=== PATIENT | female | born 1980 | race African-American/Black ===

== ENCOUNTER 2016-08-30 05:36 | Inpatient (IN) | payer MEDICAID ==
[2016-08-30] MEDS ORDERED: LR 1,000 ML IV ONE (06:42)
[2016-08-30] MEDS ORDERED: LIDOCAINE 1% 5 ML SDV ID PRN (06:42)
[2016-08-30 06:47] LABS: % IMMATURE GRANULYOCYTES 0.4 % (0.0-1.1); ABSOLUTE IMMATURE GRANULOCYTES 0.02 10^3/uL (0.00-0.10); ADD DIFF? NO; ADD MORPH? NO; ADD SCAN? NO; ATYPICAL LYMPHOCYTE FLAG 60 (0-99); FRAGMENT RBC FLAG 20 (0-99); HEMATOCRIT 41.7 % (38.0-47.0); HEMOGLOBIN 14.1 g/dL (12.6-16.3); LEFT SHIFT FLG 0 (0-99); LIPEMIA HEMOLYSIS FLAG 90 (0-99); MEAN CELL HEMOGLOBIN 27.1 pg (27.9-34.1); MEAN CELL HEMOGLOBIN CONCENTR. 33.8 g/dL (32.4-36.7); MEAN CELL VOLUME 80.2 fL (81.5-99.8); MEAN PLATELET VOLUME 9.8 fL (8.7-11.7); PLATELET CLUMPS FLAG 0 (0-99); PLATELET COUNT 338 10^3/uL (150-400); RED CELL DISTRIBUTION WIDTH 19.8 % (11.5-15.2)
[2016-08-30] MEDS ORDERED: VASOPRESSIN 20 UNIT/ML VIAL ONE (07:08)
[2016-08-30] MEDS ORDERED: SURGIFLO MATRIX KIT WITH THROMBIN TP ONE (07:08)
[2016-08-30] MEDS ORDERED: BUPIVACAINE/EPI 0.5% 30 ML SDV ONE (07:08)
[2016-08-30] MEDS ORDERED: DEXAMETHASONE 4 MG/ML VIAL ONE (07:12)
[2016-08-30] MEDS ORDERED: HYDROmorphONE/DILAUDID 2 MG/ML SYR ONE (07:12)
[2016-08-30] MEDS ORDERED: SUGAMMADEX SODIUM 200 MG/2 ML VIAL IVP ONE (07:12)
[2016-08-30] MEDS ORDERED: fentaNYL 100 MCG/2 ML INJ ONE ×2 (07:12→09:16)
[2016-08-30] MEDS ORDERED: PROPOFOL 200 MG/20 ML VIAL ONE (07:12)
[2016-08-30] MEDS ORDERED: ONDANSETRON 4 MG/2 ML VIAL ONE (07:12)
[2016-08-30] MEDS ORDERED: ROCURONIUM 50 MG/5 ML VIAL ONE (07:12)
[2016-08-30] MEDS ORDERED: LIDOCAINE 2% 100 MG/5 ML SYR IVP ONE (07:12)
[2016-08-30] MEDS ORDERED: MIDAZOLAM 2 MG/2 ML VIAL ONE (07:16)
[2016-08-30] MEDS ORDERED: KETOROLAC 30 MG/1 ML SDV ONE (08:46)
[2016-08-30] MEDS ORDERED: ONDANSETRON 4 MG/2 ML VIAL IVP PRN (09:10)
[2016-08-30] MEDS ORDERED: ACETAMINOPHEN 325 MG TAB PO PRN (09:10)
[2016-08-30] MEDS ORDERED: PROMETHAZINE HCL 25 MG/ML VIAL IVP PRN (09:10)
--- NOTE | 2016-08-30 09:10 | POSTOPPROG ---
Post Op Note Date of Operation: 08/30/16 Surgeon: Estefani Giron Data Analysis Intern: Charity Tamayo MD Anesthesiologist: Jose Manuel Anesthesia: GET(General Endotracheal) Pre-op Diagnosis: Symptomatic fibroid uterus, desired future fertility Post-op Diagnosis: cliff Indication: Symptomatic large fibroid uterus, desired future fertility Procedure: Abdominal myomectomy Findings: Two large fibroids- one pedunculated off left fundus, one intramural. Inf/Abcess present in the surg proc area at time of surgery?: No Depth: Organ Space EBL: 50-100 Complications: none Drains: Other (christianson) Specimen(s): Fibroids x 3
[2016-08-30] MEDS ORDERED: morphINE PCA 30 MG/30 ML PCA IV PRN (09:14)
[2016-08-30] MEDS ORDERED: diphenhydrAMINE 25 MG CAP PO PRN (09:14)
[2016-08-30] MEDS ORDERED: NALOXONE HCL 0.4 MG/ML INJ IVP PRN (09:14)
[2016-08-30] MEDS ORDERED: IBUPROFEN 200 MG TAB PO PRN (09:14)
[2016-08-30] MEDS ORDERED: HYDROmorphONE/DILAUDID 1 MG/ML SYR ONE (09:16)
[2016-08-30] MEDS ORDERED: PROMETHAZINE HCL 25 MG/ML VIAL ONE (09:18)
--- NOTE | 2016-08-30 09:51 | GOP ---
[f rep st] OPERATIVE REPORT DATE OF OPERATION: 08/30/2016 SURGEON: Estefani Giron MD OUTBOARD [employer]ORS EXPERIMENTAL MECHANIC: Charity Tamayo MD ANESTHESIA: General. ANESTHESIOLOGIST: Yaw Richard MD PREOPERATIVE DIAGNOSIS: 1. Symptomatic fibroid uterus. 2. Desires future fertility. POSTOPERATIVE DIAGNOSIS: 1. Symptomatic fibroid uterus. 2. Desires future fertility. PROCEDURE PERFORMED: Abdominal myomectomy. FINDINGS: The uterus was found to have one 6-7 cm pedunculated fibroid off the left fundus of the ut erus, one very large approximately 10 cm fibroid that was intramural in location that did enter into the endometrial cavity, and one smaller anterior 2-3 cm fibroid. The area of dissection did enter th e endometrial cavity. It also came close to the entry point of the right fallopian tube. However, t he area of the left fallopian tube was clearly avoided. SPECIMENS: Fibroids. ESTIMATED BLOOD LOSS: 50 cc. INDICATIONS: Patient is a 36-year-old 0 female with a history of symptomatic fibroid uterus with menorrhagia and severe dysmenorrhea. She was noted to have at least 2 large fibroids up to 10 c m, and she desires future fertility. She strongly desires to proceed with abdominal myomectomy. She had tried multiple other medical treatments including hormonal therapy, which had not been successfu l in treating her pain. DESCRIPTION OF PROCEDURE: Patient was taken to the operating room, where general anesthesia was foun d to be adequate. Patient was prepared and draped in the normal sterile fashion in the dorsal supine position. A low transverse skin incision was made and carried down to the level of the fascia using the scalpel and Bovie for hemostasis. The fascia was incised in the midline, extended laterally rubia aterally with the Cobb scissors. Fascia was dissected off the rectus muscles superiorly and inferior ly using the Bovie. The peritoneal cavity was entered with Crissy clamps and extended superiorly and inferiorly in layers using the Bovie. The uterus was then elevated out of the patient's abdomen. Th ere was one 6-7 cm pedunculated fibroid which was removed easily by just clamping across its 2-3 cm b ase with a curved Andrey clamp. The fibroid was excised, and then the pedicle was tied off with 0 Vi cryl. The larger fibroid was clearly encompassing the majority of the uterus. The overlying uterine serosa was injected with a vasopressin mixture that was a concentration of 1 amp of vasopressin in 6 0 cc of normal saline. This injection was injected over the fibroid in an anterior-posterior directi on. An incision was made in the serosa overlying the fibroid in the midline in an anterior-posterior direction. The edges of the uterine serosa were grasped with Allis clamps, and the fibroid was diss ected out from all of its attachments using a fine Crissy clamp in addition to the Bovie and some blun t dissection. The fibroid was removed from the field. Upon evaluation, there had been entry clearly into the endometrial cavity. The closure of the space was initiated with a running, locked stitch o f 0 Vicryl incorporating the endometrium as well as the surrounding myometrium. After this layer, 2 additional [id number] stitches were placed, and hemostasis was assured. The excess uterine sero sa was excised with the Cobb scissors, and the remaining incision was closed using a baseball stitch and using 0 Vicryl. Hemostasis was assured. Attention was then turned to the smaller anterior fibro id, where vasopressin was injected overlying the fibroid along the serosal plane. An incision was ma de overlying the fibroid, and it was easily and quickly dissected out using Crissy clamps. This incis ion was closed with 2 kgflli-[id number]-bkxps stitches, and hemostasis was assured. The remaining larger inc ision was covered with a segment of Surgicel, and no bleeding was noted. It was placed back into the abdomen. The rectus muscle surfaces and fascial surfaces were examined closely, and hemostasis was obtained wi th use of the Bovie. The fascia was then closed with a running, nonlocked stitch of 0 Vicryl. The s ubcutaneous tissue was irrigated with copious amounts of normal saline, and hemostasis was obtained w ith the use of the Bovie. The skin incision was then closed with a subcuticular stitch of 4-0 Monocr yl. Steri-Strips and a bandage dressing were placed. All sponge, lap, and needle counts correct x2. The patient was transferred into the PACU in stable a nd good condition. She was awoken. COMPLICATIONS: None. DRAINS: Spencer to gravity. IV FLUIDS: 1600 cc. URINE OUTPUT: 50 cc. /[id number]/MODL
[2016-08-30] MEDS: LR 1,000 ML IV SCH ×2 (10:49→17:31)
[2016-08-31 05:51] LABS: % IMMATURE GRANULYOCYTES 0.2 % (0.0-1.1); ABSOLUTE IMMATURE GRANULOCYTES 0.02 10^3/uL (0.00-0.10); ADD DIFF? NO; ADD MORPH? NO; ADD SCAN? NO; ATYPICAL LYMPHOCYTE FLAG 30 (0-99); FRAGMENT RBC FLAG 20 (0-99); HEMATOCRIT 29.7 % (38.0-47.0); HEMOGLOBIN 9.7 g/dL (12.6-16.3); LEFT SHIFT FLG 0 (0-99); LIPEMIA HEMOLYSIS FLAG 80 (0-99); MEAN CELL HEMOGLOBIN 26.8 pg (27.9-34.1); MEAN CELL HEMOGLOBIN CONCENTR. 32.7 g/dL (32.4-36.7); MEAN PLATELET VOLUME 9.9 fL (8.7-11.7); PLATELET CLUMPS FLAG 10 (0-99); PLATELET COUNT 209 10^3/uL (150-400); RED BLOOD CELL COUNT 3.62 10^6/uL (4.18-5.33)
[2016-08-31] MEDS: HYDROCODONE/APAP 5/325 TAB PO PRN ×3 (07:32→16:05)
--- NOTE | 2016-08-31 08:46 | SOAPPROG ---
SOAP Progress Note Assessment/Plan: Assessment: POD#1 s/p abdominal myomectomy Overall doing well, VSS, exam normal. 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 Just had 2 norco, so far working for her pain. Walked around unit last night. catheter is already out, she did void once this morning. Tolerating regular diet. No flatus though she feels like she is close. Wants to go home this afternoon if possible. Had some heavier bleeding from vagina last night when ambulating, but it slowed down a lot overnight, only changed her pad once this morning and it was not soaked Objective: Vital Signs Temp Pulse Resp BP Pulse Ox 36.6 C 80 18 115/72 97 08/31/16 08:26 08/31/16 08:26 08/31/16 08:26 08/31/16 08:26 08/31/16 08:26 Laboratory Results 08/31/16 05:03 08/30/16 08/31/16 09/01/16 05:59 05:59 05:59 Intake Total 4444 190 Output Total 2300 Balance 2144 190 Gen: NAD Resp: normal effort, speaking in full sentences CV: regular rate Abd: soft, non distended, appropriately tender Incision: c/d/i with steri-strips Ext: no edema Cloth Laminating Supervisor: small amount of blood on pad ICD10 Worksheet Patient Problems: Problems Problem Status Diagnosed S/P myomectomy Acute - ICD10 Problem Qualifiers (1) S/P myomectomy
[2016-08-31 12:25] LABS: HEMATOCRIT 29.4 % (38.0-47.0); HEMOGLOBIN 9.8 g/dL (12.6-16.3); MEAN CELL HEMOGLOBIN 27.4 pg (27.9-34.1); MEAN CELL HEMOGLOBIN CONCENTR. 33.3 g/dL (32.4-36.7); MEAN CELL VOLUME 82.1 fL (81.5-99.8); RED BLOOD CELL COUNT 3.58 10^6/uL (4.18-5.33); RED CELL DISTRIBUTION WIDTH 19.1 % (11.5-15.2)
[2016-08-31] MEDS: IBUPROFEN 600 MG TAB PO PRN (14:47)
[2016-08-31] MEDS ORDERED: HYDROmorphONE/DILAUDID 1 MG/ML SYR IVP PRN (18:51)
--- NOTE | 2016-08-31 18:53 | SOAPPROG ---
SOAP Progress Note Assessment/Plan: Assessment: TC by RN: Pain not well controlled with [place] 5/325 x2 and Motrin alone. Pt is now passing gas, continues to ambulate Plan: Dilaudid 0.4 mg IV x 1 now, can repeat in 2 hours if necessary Continue motrin 600 mg po q6hrs Increase D[place]ott to 10/325 mg 2 tabs (pt declines percocet, has made her nauseous in the past) Call if no improvement in pain 08/31/16 08:42 08/31/16 08:46 08/31/16 18:52 Objective: Vital Signs Temp Pulse Resp BP Pulse Ox 36.7 C 66 16 110/78 96 08/31/16 16:08 08/31/16 16:08 08/31/16 16:08 08/31/16 16:08 08/31/16 16:08 Laboratory Results 08/31/16 12:15 08/30/16 08/31/16 09/01/16 05:59 05:59 05:59 Intake Total 4444 190 Output Total 2300 Balance 2149 190 ICD10 Worksheet Patient Problems: Problems Problem Status Diagnosed S/P myomectomy Acute - ICD10 Problem Qualifiers (1) S/P myomectomy
[2016-08-31] MEDS: HYDROCODONE/APAP 10/325 TAB PO PRN (20:11)
[2016-09-01] MEDS: HYDROCODONE/APAP 10/325 TAB PO PRN ×3 (00:02→09:06)
[2016-09-01 03:50] VITALS: TEMP 98.1
[2016-09-01] MEDS: IBUPROFEN 600 MG TAB PO PRN (05:14)
[2016-09-01 07:23] VITALS: BP 120/68; PULSE 77; RESP 16; O2SAT 99
--- NOTE | 2016-09-01 08:54 | PDDCSUM ---
Discharge Summary Discharge Summary: Date of admission: 08/30/16 Date of discharge: 09/01/16 Admission diagnosis: Symptomatic fibroid uterus Discharge diagnosis: [facility] Hospital course: Pt underwent an uncomplicated abdominal myomectomy for [facility]. 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 POD#1, she was transitioned to oral medications and christianson discontinued. POD#2, she is meeting all criteria for discharge. She is ambulating, passing flatus, tolerating regular diet, voiding spontaneously and pain well controlled with oral medications. Her vitals have remained stable. HCT 29 postop and stable. Diet: regular Medications: norco, motrin and sprintec Activity: Pelvic rest x one month, no driving x 2 weeks, no heavy lifting x 6 weeks F/U in 2 weeks w/ Dr Giron or sooner prn
== END 2016-09-01 10:20 | disposition home or self-care (01) | DRG 743 ==
LOC: F3E 05:36
PROVIDERS: ADMIT Obstetrics & Gynecology; ATTEND Obstetrics & Gynecology
PROC: 0UB90ZZ Excision of Uterus, Open Approach (ICD-10-PCS; principal; 2016-08-30 07:15)
DX: D25.1 Intramural leiomyoma of uterus (principal)
CPT/HCPCS: J1100; J1170; J1885; J2001; J2250; J2270; J2405; J2550; J2704; J3010

== ENCOUNTER 2017-07-03 23:51 | Emergency (ER) | payer MEDICAID ==
--- NOTE | 2017-07-03 23:52 | EDPHY ---
H & P HPI/ROS: HPI CHIEF COMPLAINT: Nausea and vomiting HISTORY OF PRESENT ILLNESS: This patient is a 36-year-old female she presents emergency room nausea vomiting. At triage she refused to be NPO in refused vital signs she was brought back to the emergency room to ER room 13 where she will not answer any of my questions but she does complain of nausea is actively vomiting. Will reassess shortly after an IV established with IV fluid bolus and nausea medicine. Past Medical History: Gastritis, previous M1 hold, fibroid surgery Past Surgical History: Fibroid surgery Social History: Alcohol use daily Family History: Noncontributory ROS REVIEW OF SYSTEMS: Review of systems and history initially limited due to patient not answering any of my questions. Exam Constitutional nonverbal at this time, actively vomiting, triage nursing summary reviewed, vital signs reviewed, awake/alert. Eyes normal conjunctivae and sclera, EOMI, PERRLA. HENT normal inspection, atraumatic, moist mucus membranes, no epistaxis, neck supple/ no meningismus, no raccoon eyes. Respiratory clear to auscultation bilaterally, normal breath sounds, no respiratory distress, no wheezing. Cardiovascular rate normal, regular rhythm, no murmur, no edema, distal pulses normal. Gastrointestinal soft, non-tender, no rebound, no guarding, normal bowel sounds, no distension, no pulsatile mass. Genitourinary no CVA tenderness. Musculoskeletal no midline vertebral tenderness, full range of motion, no calf swelling, no tenderness of extremities, no meningismus, good pulses, neurovascularly intact. Skin pink, warm, & dry, no rash, skin atraumatic. Neurologic does not answer my questions, awake, alert and oriented x 3, AAOx3, moves all 4 extremities equally, motor intact, sensory intact, CN II-XII intact , normal cerebellar, normal vision, normal speech. Psychiatric normal mood/affect. Heme/Lymph/Immune no lymphadenopathy. Differential diagnosis includes but is not limited to and in no particular order : Bowel obstruction, appendicitis, gallbladder disease, diverticulitis, colitis , enteritis, perforated viscus, gastritis, GERD, esophagitis, urinary tract infection, pyelonephritis, kidney stones Medical Decision Making: IV establishment with IV fluid bolus, IV Haldol for nausea vomiting, check abdominal blood work, re-evaluate. Re-evaluation: 1211AM: I did go re-evaluate this patient she still refusing answer many questions. Additionally she is refusing exam at this time. She is requesting a blanket and IV fluids and nausea medicine. EKG interpretation by me on record in [facility] system. Impression time of EKG 1:06 a.m., this is sinus rhythm rate of 81 motion artifact visualized however I do not appreciate any acute ischemic change. Similar to previous EKG dated 11/01/2015. 0124: Elevated alcohol level. 157. 0124: Elevated lactic acid of 5. There is most likely due to nausea vomiting and dehydration. Will repeat this after 3rd L fluid. No evidence of sepsis. 0225AM: CT scan abdomen pelvis with IV contrast called to me by Dr. Urban Portillo. CT scan shows no acute inflammatory process. There are visualize fibroids. No appendicitis. Normal appendix visualized. 0226: I did go reexamine this patient at this time the patient is resting comfortably abdomen is soft. Nontender. She is not vomiting or crusting to drink something. CT scan, chest x-ray, EKG and blood work reviewed. Do not appreciate acute inflammatory process. Most likely gastritis causing nausea vomiting. In the setting of alcohol use. I do recommend highly that she refrain from drinking alcohol no fatty greasy foods for the next 24 - 48 hours and returns to the emergency room if there is worsening abdominal pain fever vomiting she understands. 0304: Lactic acid did trend down but is still elevated however patient is requesting be discharged. She p. o. challenge well. Ambulated well throughout the emergency room her abdomen remained soft nontender she is not vomiting. Lactic acid most likely elevated from dehydration alcohol use. She has had 3 L here in the emergency room she appears well hydrated. Up ambulatory well. Drank well and urinated well. She is requesting discharge. Return precautions have been given. I do not feel that she needs more IV fluids or needs another repeat lactic to see the trends further down I do recommend she stop drinking alcohol and return emergency room she develops worsening abdominal pain fever vomiting. Source: Patient - Medical/Surgical History Hx Asthma: No Hx Chronic Respiratory Disease: No Hx Diabetes: No Hx Cardiac Disease: No Hx Renal Disease: No Hx Cirrhosis: No Hx Alcoholism: No Hx HIV/AIDS: No Hx Splenectomy or Spleen Trauma: No Other PMH: breast cyst removal /UTERINE FIBROIDS - Social History Smoking Status: Heavy smoker Constitutional: Initial Vital Signs Heart Rate 79 07/03/17 23:53 Respiratory Rate 16 07/03/17 23:53 O2 Sat (%) 92 07/03/17 23:53 O2 Delivery Mode Room Air Allergies/Adverse Reactions: No Known Allergies Allergy (Verified 06/12/16 17:52) Home Medications: Medication Instructions Recorded Norgestimate-Ethinyl Estradiol 1 each PO DAILY #28 tablet 09/01/16 [Sprintec] Ondansetron HCl [Zofran] 4 mg PO Q4-6PRN PRN #10 tablet 07/04/17 Medical Decision Making - Data Points Laboratory Results: Laboratory Results 07/04/17 00:20 07/04/17 00:20 07/04/17 07/04/17 07/04/17 03:00 02:30 01:00 WBC RBC Hgb Hct MCV MCH MCHC RDW Plt Count MPV Neut % (Auto) Lymph % (Auto) [facility] % (Auto) Eos % (Auto) Baso % (Auto) Nucleat RBC Rel Count Absolute Neuts (auto) Absolute Lymphs (auto) Absolute Monos (auto) Absolute Eos (auto) Absolute Basos (auto) Absolute Nucleated RBC Immature Gran % Immature Gran # VBG Lactic Acid 4.0 mmol/L H mmol/L 5.0 mmol/L H mmol/L (0.7-2.1) (0.7-2.1) Sodium Potassium Chloride Carbon Dioxide Anion Gap BUN Creatinine Estimated GFR Glucose Calcium Total Bilirubin Conjugated Bilirubin Unconjugated Bilirubin AST ALT Alkaline Phosphatase Total Protein Albumin Lipase Beta HCG, Qual Urine Color Pending Urine Appearance Pending Urine pH Pending Ur Specific [place] Pending Urine Protein Pending Urine Ketones Pending Urine Blood Pending Urine Nitrate Pending Urine Bilirubin Pending Urine Urobilinogen Pending Ur Leukocyte Esterase Pending Urine Glucose Pending Urine Opiates Screen Pending Urine Barbiturates Pending Ur Phencyclidine Scrn Pending Ur Amphetamine Screen Pending U Benzodiazepines Scrn Pending Urine Cocaine Screen Pending U Marijuana (THC) Screen Pending Ethyl Alcohol 07/04/17 07/04/17 07/04/17 00:20 00:20 00:20 WBC 10.88 10^3/uL H 10^3/uL (3.80-9.50) RBC 5.13 10^6/uL 10^6/uL (4.18-5.33) Hgb 14.3 g/dL g/dL (12.6-16.3) Hct 42.9 % % (38.0-47.0) MCV 83.6 fL fL (81.5-99.8) MCH 27.9 pg pg (27.9-34.1) MCHC 33.3 g/dL g/dL (32.4-36.7) RDW 18.1 % H % (11.5-15.2) Plt Count 379 10^3/uL 10^3/uL (150-400) MPV 10.2 fL fL (8.7-11.7) Neut % (Auto) 79.6 % H % (39.3-74.2) Lymph % (Auto) 16.5 % % (15.0-45.0) [facility] % (Auto) 2.8 % L % (4.5-13.0) Eos % (Auto) 0.0 % L % (0.6-7.6) Baso % (Auto) 0.6 % % (0.3-1.7) Nucleat RBC Rel Count 0.0 % % (0.0-0.2) Absolute Neuts (auto) 8.68 10^3/uL H 10^3/uL (1.70-6.50) Absolute Lymphs (auto) 1.79 10^3/uL 10^3/uL (1.00-3.00) Absolute Monos (auto) 0.30 10^3/uL 10^3/uL (0.30-0.80) Absolute Eos (auto) 0.00 10^3/uL L 10^3/uL (0.03-0.40) Absolute Basos (auto) 0.06 10^3/uL 10^3/uL (0.02-0.10) Absolute Nucleated RBC 0.00 10^3/uL 10^3/uL (0-0.01) Immature Gran % 0.5 % % (0.0-1.1) Immature Gran # 0.05 10^3/uL 10^3/uL (0.00-0.10) VBG Lactic Acid Sodium 148 mEq/L H mEq/L (134-144) Potassium 3.5 mEq/L mEq/L (3.5-5.2) Chloride 106 mEq/L mEq/L (97-110) Carbon Dioxide 23 mEq/l mEq/l (22-31) Anion Gap 19 mEq/L H mEq/L (8-16) BUN 6 mg/dL L mg/dL (7-23) Creatinine 0.6 mg/dL mg/dL (0.6-1.0) Estimated GFR > 60 Glucose 110 mg/dL H mg/dL (70-100) Calcium 9.1 mg/dL mg/dL (8.5-10.4) Total Bilirubin 0.1 mg/dL mg/dL (0.1-1.4) Conjugated Bilirubin 0.0 mg/dL mg/dL (0.0-0.5) Unconjugated Bilirubin 0.1 mg/dL mg/dL (0.0-1.1) AST 38 IU/L IU/L (14-46) ALT 25 IU/L IU/L (9-52) Alkaline Phosphatase 70 IU/L IU/L (38-126) Total Protein 7.8 g/dL g/dL (6.3-8.2) Albumin 4.9 g/dL g/dL (3.5-5.0) Lipase 27 IU/L IU/L (23-300) Beta HCG, Qual NEGATIVE Urine Color Urine Appearance Urine pH Ur Specific [place] Urine Protein Urine Ketones Urine Blood Urine Nitrate Urine Bilirubin Urine Urobilinogen Ur Leukocyte Esterase Urine Glucose Urine Opiates Screen Urine Barbiturates Ur Phencyclidine Scrn Ur Amphetamine Screen U Benzodiazepines Scrn Urine Cocaine Screen U Marijuana (THC) Screen Ethyl Alcohol 157 mg/dL H mg/dL (0-10) Medications Given: Discontinued Medications Haloperidol Lactate (Haldol Injection) 2.5 mg IVP EDNOW ONE Stop: 07/04/17 00:08 Last Admin: 07/04/17 00:20 Dose: 2.5 mg Sodium Chloride (Ns) 1,000 mls @ 0 mls/hr IV EDNOW ONE; Wide Open PRN Reason: Protocol Stop: 07/04/17 00:04 Last Admin: 07/04/17 00:20 Dose: 1,000 mls Sodium Chloride (Ns) 1,000 mls @ 0 mls/hr IV EDNOW ONE; Wide Open PRN Reason: Protocol Stop: 07/04/17 00:04 Last Admin: 07/04/17 01:13 Dose: 1,000 mls Sodium Chloride (Ns) 1,000 mls @ 0 mls/hr IV ONCE ONE PRN Reason: Wide Open Stop: 07/04/17 01:24 Last Admin: 07/04/17 01:27 Dose: 1,000 mls Departure - Departure Disposition: Home, Routine, Self-Care Clinical Impression: Abdominal pain Qualifiers: Abdominal location: generalized Qualified Code(s): R10.84 - Generalized abdominal pain Condition: Good Instructions: Acute Nausea and Vomiting (ED), Acute Abdominal Pain (ED) Additional Instructions: 1. [place] diet next 24-48 hours. 2. No spicy fatty greasy foods. No alcohol. 3. Return emergency room if develops worsening abdominal pain fever vomiting. Referrals: NONE *PRIMARY CARE P,. [Primary Care Provider] - As per Instructions Prescriptions: Ondansetron HCl [Zofran] 4 mg PO Q4-6PRN PRN #10 tablet PRN Reason: Nausea/Vomiting, Use 1st
[2017-07-03 23:55] VITALS: RESP 16
[2017-07-04] MEDS ORDERED: NS 1,000 ML IV ONE ×3 (00:03→01:23)
[2017-07-04] MEDS ORDERED: HALOPERIDOL LACT 5 MG/ML INJ IVP ONE (00:07)
--- NOTE | 2017-07-04 01:08 | CPEKG ---
Heart Rate: 81 RR Interval: 741 P-R Interval: 172 QRSD Interval: 72 QT Interval: 412 QTC Interval: 479 P [place]: 87 QRS [place]: 32 T Wave [place]: 6 EKG Severity - BORDERLINE ECG - EKG Impression: SINUS RHYTHM EKG Impression: BORDERLINE T ABNORMALITIES, INFERIOR LEADS Electronically Signed By: Elliott Krishnamurthy 04-Jul-2017 07:00:09
[2017-07-04 01:10] LABS: PLATELET COUNT 379 10^3/uL (150-400)
[2017-07-04] MEDS ORDERED: IOPAMIDOL (ISOVUE-300) 100 ML BTL ONE (01:25)
[2017-07-04 03:58] VITALS: BP 97/67; PULSE 73; TEMP 98.2; O2SAT 96
== END 2017-07-04 03:57 | disposition home or self-care (01) ==
DX: R10.84 Generalized abdominal pain (principal); F17.200 Nicotine dependence, unspecified, uncomplicated; E86.9 Volume depletion, unspecified
CPT/HCPCS: 80305; 96374; G0480; Q9967

== ENCOUNTER 2018-01-13 20:18 | Emergency (ER) | payer MEDICAID ==
--- NOTE | 2018-01-13 20:31 | EDPHY ---
H & P Stated Complaint: n,v, 2 days denies diarrhea, aches all over and headahe Time Seen by Provider: 01/13/18 20:29 HPI/ROS: HPI: This is a 37-year-old female who presents with Chief Complaint: n,v, 2 days denies diarrhea, aches all over and headahe Location: GI Quality: Nausea vomiting Duration: 2 days Signs and Symptoms: no fever, + nausea, + vomiting, no hematemesis, no blood in stool, no abdominal bloating, no diarrhea, no back pain, no urinary symptoms, no vaginal bleeding/discharge, no indigestion, no chest pain, no shortness of breath Timing: Acute, intermittent Severity: Moderate Context: Patient presents with complaints of cyclical episodes of nausea and vomiting. She reports that she has only been dry heaving for the last few hours. She reports that this is usually caused by stress. She was seen in this emergency room approximately 1-2 years ago for the same with negative CT scan of her belly per the patient. She denies any history of abdominal surgery. Denies fever/diarrhea/back pain/urinary symptoms. Her last urination was approximately 3 hr prior to arrival. She smokes marijuana yesterday evening and smokes marijuana at least 3 times per week. Completed her menses approximately 2 days ago. Patient denies any actual abdominal pain. Modifying Factors: None Comment: ROS: see HPI Constitutional: No fever, no chills, no weight loss Eyes: No blurred vision Respiratory: No shortness of breath, no cough Cardiovascular: No chest pain, no palpitations Gastrointestinal: + nausea, + vomiting, no diarrhea, no hematemesis, no blood in stool Genitourinary: No dysuria, no blood in urine Extremities: No myalgias, no edema Neurologic: No weakness, no numbness Skin: No rashes, no petechiae Hematologic: No bruising, no bleeding MEDICAL/SURGICAL/SOCIAL HISTORY: Medical history: Uterine fibroids Surgical history: Breast cyst removal Social history: Heavy smoker. Family history noncontributory. CONSTITUTIONAL: Extremely anxious adult female, awake and alert, no obvious distress HEENT: Atraumatic and normocephalic, PERRL, EOMI. Nares patent; no rhinorrhea; no nasal mucosal edema. Tympanic membranes clear. Oropharynx clear, no exudate and moist pink mucosa. Airway patent. No lymphadenopathy. No meningismus. Cardiovascular: Normal S1/S2, regular rate, regular rhythm, without murmur rub or gallop. PULMONARY/CHEST: Symmetrical and nontender. Clear to auscultation bilaterally. Good air movement. No accessory muscle usage. ABDOMEN: Soft, nondistended, nontender, no rebound, no guarding, no peritoneal signs, no masses or organomegaly. No CVAT. EXTREMITIES: 2/2 pulses, strength 5/5, no deformities, no clubbing, no cyanosis or edema. NEUROLOGICAL: no focal neuro deficits. GCS 15. SKIN: Warm and dry, no erythema. no rash. Good capillary refill. Source: Patient Exam Limitations: No limitations - Personal History LMP (Females 10-55): Now Current Tetanus/Diphtheria Vaccine: Yes Current Tetanus Diphtheria and Acellular Pertussis (TDAP): Yes - Medical/Surgical History Hx Asthma: No Hx Chronic Respiratory Disease: No Hx Diabetes: No Hx Cardiac Disease: No Hx Renal Disease: No Hx Cirrhosis: No Hx Alcoholism: No Hx HIV/AIDS: No Hx Splenectomy or Spleen Trauma: No Other PMH: breast cyst removal /UTERINE FIBROIDS - Social History Smoking Status: Heavy smoker Constitutional: Initial Vital Signs Temperature (C) 37.0 C 01/13/18 20:22 Heart Rate 80 01/13/18 20:22 Respiratory Rate 18 01/13/18 20:22 Blood Pressure 112/78 01/13/18 20:22 O2 Sat (%) 100 01/13/18 20:22 O2 Delivery Mode Room Air Allergies/Adverse Reactions: No Known Allergies Allergy (Verified 01/13/18 20:24) Home Medications: Medication Instructions Recorded Ondansetron Odt [Zofran Odt 4 mg 4 mg PO Q4 PRN #12 tab 01/13/18 (*)] Promethazine HCl [Phenergan 25mg 25 mg PO Q6 PRN #12 tab 01/13/18 (*)] Medical Decision Making ED Course/Re-evaluation: Vital signs reviewed and stable upon arrival. Doubt systemic signs. Abdomen is soft and nontender. Doubt surgical process. Do not believe that imaging of her abdomen and pelvis at this time is indicated. 2040: Given 2 L normal saline, IV promethazine 12.5 mg, IV Ativan 2 mg 2119: Labs reviewed. No signs of MEL/elevated LFTs/electrolyte imbalance/ /pancreatitis. 0: Reassessed patient. Asking for ice chips and tolerating. Still infusing IV fluids. Patient reports that she still feels nauseous. Given IV Protonix, IV Reglan, IV Benadryl. Abdomen remains soft and nontender. 2240: Patient asking to be discharged home. Plan is for patient to be discharged home with a prepack of antiemetics and prescription for same. Gastroenterology referral provided. This patient was seen under the supervision of my secondary supervising physician. I evaluated care for this patient independently. Discussed this patient with Dr. Milton who did not see the patient. Differential Diagnosis: Differential diagnosis includes but is not limited to gastroenteritis, C diff colitis, cyclical vomiting syndrome. - Data Points Laboratory Results: Laboratory Results 01/13/18 20:32 01/13/18 01/13/18 20:32 20:32 Sodium 140 mEq/L mEq/L (135-145) Potassium 3.5 mEq/L mEq/L (3.3-5.0) Chloride 97 mEq/L mEq/L (97-110) Carbon Dioxide 26 mEq/l mEq/l (22-31) Anion Gap 17 mEq/L H mEq/L (8-16) BUN 7 mg/dL mg/dL (7-23) Creatinine 0.6 mg/dL mg/dL (0.6-1.0) Estimated GFR > 60 Glucose 112 mg/dL H mg/dL (70-100) Calcium 9.8 mg/dL mg/dL (8.5-10.4) Total Bilirubin 0.7 mg/dL mg/dL (0.1-1.4) Conjugated Bilirubin 0.5 mg/dL mg/dL (0.0-0.5) Unconjugated Bilirubin 0.2 mg/dL mg/dL (0.0-1.1) AST 23 IU/L IU/L (14-46) ALT 22 IU/L IU/L (9-52) Alkaline Phosphatase 69 IU/L IU/L (38-126) Total Protein 8.0 g/dL g/dL (6.3-8.2) Albumin 4.7 g/dL g/dL (3.5-5.0) Lipase 15 IU/L L IU/L (23-300) Beta HCG, Qual NEGATIVE Medications Given: Discontinued Medications Diphenhydramine HCl (Benadryl Injection) 25 mg IVP EDNOW ONE Stop: 01/13/18 21:44 Last Admin: 01/13/18 21:48 Dose: 25 mg Sodium Chloride (Ns) 1,000 mls @ 0 mls/hr IV EDNOW ONE; Wide Open PRN Reason: Protocol Stop: 01/13/18 20:39 Last Admin: 01/13/18 20:43 Dose: 1,000 mls Sodium Chloride (Ns) 1,000 mls @ 0 mls/hr IV EDNOW ONE; Wide Open PRN Reason: Protocol Stop: 01/13/18 20:39 Last Admin: 01/13/18 20:44 Dose: 1,000 mls Lorazepam (Ativan Injection) 2 mg IVP EDNOW ONE Stop: 01/13/18 20:39 Last Admin: 01/13/18 20:43 Dose: 2 mg Metoclopramide HCl (Reglan Injection) 10 mg IVP EDNOW ONE Stop: 01/13/18 21:44 Last Admin: 01/13/18 21:48 Dose: 10 mg Pantoprazole Sodium (Protonix) 80 mg IVP EDNOW ONE Stop: 01/13/18 21:43 Last Admin: 01/13/18 21:48 Dose: 80 mg Promethazine HCl (Phenergan) 12.5 mg IVP EDNOW ONE Stop: 01/13/18 20:39 Last Admin: 01/13/18 20:43 Dose: 12.5 mg Promethazine HCl (Phenergan 25 Mg Prepack #4) 1 btl TAKEHOME EDNOW ONE Stop: 01/13/18 21:43 Last Admin: 01/13/18 22:20 Dose: 1 btl Departure - Departure Disposition: Home, Routine, Self-Care Clinical Impression: Cyclical vomiting syndrome Qualifiers: Vomiting Intractability: intractable Nausea presence: with nausea Qualified Code(s): G43.A1 - Cyclical vomiting, intractable Condition: Good Instructions: Ondansetron (By mouth), Promethazine (Into the rectum), Cyclic Vomiting Syndrome (ED) Additional Instructions: Consume a minimum of 8-10 glasses of water or electrolyte fluid replacement drinks that include Gatorade, Powerade, Pedialyte. Eat a bland diet for the next 48 hours and then slowly advance as tolerated. Take Zofran 1 tab every 4 hours as needed for nausea, vomiting. Take Promethazine 1 tab every 6 hr as needed for nausea vomiting if Zofran does not work. Stop smoking marijuana as this can cause and increase your symptoms of nausea, vomiting. Establish care with Gastroenterology within the next 1-2 weeks. Referrals: Roel Maurice MD [Medical Doctor] - As per Instructions Prescriptions: Ondansetron Odt [Zofran Odt 4 mg (*)] 4 mg PO Q4 PRN #12 tab PRN Reason: Nausea/Vomiting, Use 1st Promethazine HCl [Phenergan 25mg (*)] 25 mg PO Q6 PRN #12 tab PRN Reason: Nausea/Vomiting, Use 2nd
[2018-01-13] MEDS ORDERED: LORazepam 2 MG/ML INJ IVP ONE (20:38)
[2018-01-13] MEDS ORDERED: NS 1,000 ML IV ONE ×2 (20:38)
[2018-01-13] MEDS ORDERED: PROMETHAZINE HCL 25 MG/ML INJ IVP ONE (20:38)
[2018-01-13] MEDS ORDERED: PANTOPRAZOLE SODIUM 40 MG VIAL IVP ONE (21:42)
[2018-01-13] MEDS ORDERED: PROMETHAZINE 25 MG PREPACK #4 BTL TAKEHOME ONE (21:42)
[2018-01-13] MEDS ORDERED: METOCLOPRAMIDE 10 MG/2 ML VIAL IVP ONE (21:43)
[2018-01-13 22:20] VITALS: BP 106/75
== END 2018-01-13 22:27 | disposition home or self-care (01) ==
DX: G43.A1 Cyclical vomiting, in migraine, intractable (principal); E86.9 Volume depletion, unspecified; F17.200 Nicotine dependence, unspecified, uncomplicated
CPT/HCPCS: 96374; J1200; J2060; J2550; J2765